=== PATIENT | female | born 1980 | race Caucasian/White ===

== ENCOUNTER → 2016-07-08 | Outpatient (CLI) | payer OTHER ==
--- NOTE | 2016-07-08 18:01 | DX ---
Chest, Two Views at 1555 hours History: Screening for travel. Comparison: 2009 Findings: Cardiac silhouette is within normal range. No evidence of granulomatous disease. No pneumon ia, congestive heart failure, pleural effusion, or pneumothorax. Impression: Normal chest.
== END ==
LOC: FIMAGING 15:09
PROVIDERS: ATTEND Internal Medicine
DX: Z00.00 Encounter for general adult medical examination without abnormal findings (principal)